=== PATIENT | male | born 1985 | race Caucasian/White ===

== ENCOUNTER 2022-08-30 19:22 | Emergency (ER) | payer OTHER, SELFPAY ==
--- NOTE | 2022-08-30 19:27 | ED.URI ---
HPI - URI/Sore Throat General Chief Complaint: Upper Respiratory Infection Stated Complaint: Congestion,Sore Throat Time Seen by Provider: 08/30/22 19:25 Source: patient Mode of arrival: ambulatory Limitations: no limitations History of Present Illness HPI Narrative: Mr. Aguilar is a 37-year-old male patient presenting to the clinic today with complaints congestion, cough, sore throat, and body aches times 3-4 days. He reports that his family is home sick with influenza and strep. His son was seen here earlier today and tested positive for influenza a and strep pharyngitis. He has a 8-day-old at home MD elicited complaint: sore throat and nasal congestion Related Data Allergies Allergy/AdvReac Type Severity Reaction Status Date / Time No Known Allergies Allergy Verified 08/30/22 19:35 Review of Systems Review of Systems: Pertinent positives per HPI. Patient denies any rash, headache, visual changes, dizziness, shortness of breath, chest pain, palpitations, nausea, vomiting, diarrhea, constipation, abdominal pain, or any urinary issues. PMFSH Past Medical History Medical History Acute non-recurrent maxillary sinusitis Family History Family History Mother Family history of thyroid disease Patient's mother is in good health Sibling Patient's sister is in good health Family history of seizure disorder Social History Social History Smoking status: Never smoker Alcohol intake: current Comments At the time of my signature, I reviewed and agree with the nursing past medical, surgical, social, and family history. There is no relevant family history pertinent to the patient complaint. Exam Narrative: General: Well-developed, well nourished, in no apparent distress Head: Normocephalic, atraumatic Eyes: Pupils equally round and reactive to light bilaterally, EOM intact, sclera and conjunctive clear, no discharge, lids normal Ears: TMs intact and dull, ear canals clear, no drainage, grossly hearing normal. Nose: Nares patent, clear and discharge, mild inflammation, no sinus tenderness. Mouth: Oral pharynx without lesions or masses, good dentition, MMM. Oropharynx red Neck: Supple, trachea midline, mild enlargement of anterior cervical nodes, no thyroid masses or goiter palpable. Cardio: Regular rate and rhythm, s1 and s2 normal, no murmur appreciated. Resp: Clear to auscultation bilaterally, no rhonchi, rales, wheezing or rubs Course Course Emergency Course: Portions of this record may have been created with voice recognition software. Level of Care: Express Care Visit Vital Signs Vital signs: Vital Signs Temperature 36.2 C L 08/30/22 19:35 Pulse Rate 98 08/30/22 19:35 Respiratory Rate 18 08/30/22 19:35 Blood Pressure 143/103 H 08/30/22 19:35 Pulse Oximetry 97 08/30/22 19:35 Oxygen Delivery Room Air 08/30/22 19:35 Temperature 36.2 C L 08/30/22 19:35 Pulse Rate 98 08/30/22 19:35 Respiratory Rate 18 08/30/22 19:35 Blood Pressure 143/103 H 08/30/22 19:35 Pulse Oximetry 97 08/30/22 19:35 Oxygen Delivery Room Air 08/30/22 19:35 Vital signs reviewed MDM - URI/Sore Throat MDM Narrative Medical decision making narrative: At the time of visit patient is resting comfortably on the exam table. I will go and empirically treat with Tamiflu and amoxicillin as the patient has been exposed to influenza a and strep and he has an 8-day-old baby at home. Supportive measures were discussed with the patient he voiced understanding of discharge instructions and agrees to treatment plan. Differential Diagnosis Differential diagnosis: Likely upper respiratory infection, otitis media, sinusitis, viral infection, bronchitis, influenza, pharyngitis and other Discharge Plan Discharge Clinical
[2022-08-30 19:35] VITALS: BP 143/103; PULSE 98; RESP 18; TEMP 36.2; O2SAT 97
== END 2022-08-30 19:40 | disposition home or self-care (01) ==
PROVIDERS: Emergency Provider Nurse Practitioner Family; PCP Family Medicine
DX: J06.9 Acute upper respiratory infection, unspecified (principal); J02.9 Acute pharyngitis, unspecified; Z20.818 Contact with and (suspected) exposure to other bacterial communicable diseases; Z20.828 Contact with and (suspected) exposure to other viral communicable diseases
CPT/HCPCS: 99213; G0463

== ENCOUNTER 2023-08-21 08:14 | Emergency (ER) | payer OTHER, SELFPAY ==
[2023-08-21 08:27] VITALS: BP 128/90; PULSE 94; RESP 16; TEMP 36.8; O2SAT 99
--- NOTE | 2023-08-21 08:39 | ED.URI ---
HPI - URI/Sore Throat General Chief Complaint: Upper Respiratory Infection Stated Complaint: Congestion,Sore Throat Time Seen by Provider: 08/21/23 08:31 Source: patient and RN notes reviewed Mode of arrival: ambulatory Limitations: no limitations History of Present Illness HPI Narrative: Patient presents today complaining of a 2 day history of sore throat, fever up to 101, chills, congestion, and mild cough. Currently rates his pain 2/10 and has been taking ibuprofen with some relief. Related Data Home Medications Medication Instructions Recorded Confirmed No Home Medications 08/21/23 08/21/23 Allergies Allergy/AdvReac Type Severity Reaction Status Date / Time No Known Allergies Allergy Verified 08/30/22 19:35 Review of Systems Review of Systems: CONSTITUTIONAL: Denies body aches, or sweats.+ fever, chills EYES: Denies visual changes, redness, or discharge. ENT: Denies rhinorrhea, or otalgia.+ congestion, sore throat CARDIOVASCULAR: Denies chest pain, palpitations, or edema. RESPIRATORY: Denies dyspnea.+ cough GASTROINTESTINAL: Denies abdominal pain, nausea, vomiting, or diarrhea. GENITOURINARY: Denies dysuria or hematuria. SKIN: Denies rash, itching, or wounds. MUSCULOSKELETAL: Denies back pain, joint pain, or myalgia. NEUROLOGIC: Denies headache, numbness, tingling, or weakness. PSYCH: Denies depression or anxiety. PMFSH Past Medical History Medical History Acute non-recurrent maxillary sinusitis Family History Family History Mother Family history of thyroid disease Patient's mother is in good health Sibling Patient's sister is in good health Family history of seizure disorder Social History Social History Smoking status: Never smoker Alcohol intake: current Comments At time of signature, I have reviewed and agree with nursing past medical, surgical, social and family history unless otherwise noted. Please see nursing chart for further information. There is no relevant family history pertinent to the presenting complaint Exam Narrative: GENERAL: Mildly ill-appearing, well-nourished, and in no acute distress. HEAD: Normocephalic, atraumatic. EYES: EOMI. No redness or drainage. Conjunctivae normal. ENT: Mucous membranes pink and moist. Nares congested. No rhinorrhea. TMs normal bilaterally. Throat mildly erythematous without edema or exudate. Uvula midline. NECK: Normal AROM. Supple. No lymphadenopathy. CHEST: No respiratory distress. Clear to auscultation. HEART: Regular rate and rhythm. No murmur appreciated. Normal peripheral pulses. EXTREMITIES: Normal range of motion. No edema. SKIN: Warm, dry, no rash. Capillary refill normal. Normal skin turgor. NEURO: No focal deficits. Alert and oriented x3. Gait steady. PSYCH: Normal affect. No signs of depression or anxiety. Course Course Level of Care: Express Care Visit Vital Signs Vital signs: Vital Signs Temperature 98.3 F 08/21/23 08:27 Pulse Rate 94 08/21/23 08:27 Respiratory Rate 16 08/21/23 08:27 Blood Pressure 128/90 08/21/23 08:27 Pulse Oximetry 99 08/21/23 08:27 Temperature 98.3 F 08/21/23 08:27 Pulse Rate 94 08/21/23 08:27 Respiratory Rate 16 08/21/23 08:27 Blood Pressure 128/90 08/21/23 08:27 Pulse Oximetry 99 08/21/23 08:27 Reviewed. Pt has been instructed to follow up with his PCP regarding his elevated blood pressure today. MDM - URI/Sore Throat MDM Narrative Medical decision making narrative: Patient declines testing for COVID-19. Influenza and strep swab negative. Culture pending. Symptoms likely viral in etiology. Discussed [id number] treatment. No additional testing indicated at this time. Anticipatory guidance given. Differential Diagnosis Differential diagnosi
== END 2023-08-21 08:50 | disposition home or self-care (01) ==
PROVIDERS: Emergency Provider Nurse Practitioner; PCP Family Medicine
DX: J06.9 Acute upper respiratory infection, unspecified (principal)
CPT/HCPCS: 87081; 87804; 87880; 99213; G0463